=== PATIENT | female | born 1990 | race Caucasian/White ===

== ENCOUNTER 2021-06-24 11:38 | Day surgery (SDC) | payer MEDICAID, MEDICARE ==
[~2021-06-24] VITALS: Ht 149.9 cm; Wt 79.7 kg
[~2021-06-24 11:38] MED LIST: METHYLERGONOVINE 0.2 MG/ML IM ONE; OXYTOCIN 10 UNITS/ML, 1ML ONE; SILVER NITRATE STICK TP ONE; TYROSINE PO
[2021-06-24 11:57] VITALS: BP 109/78
[2021-06-24] MEDS ORDERED: CHLORHEXIDINE 15 ML UDC PO ONE (12:00)
[2021-06-24] MEDS ORDERED: LACTATED RINGERS 1,000 ML IV SCH (13:00)
[2021-06-24] MEDS ORDERED: MIDAZOLAM 1 MG/ML, 2ML ONE (13:08)
[2021-06-24] MEDS ORDERED: IBUP-1223 PO (13:09)
[2021-06-24] MEDS ORDERED: OXYC1TAB12 PO (13:09)
[2021-06-24] MEDS ORDERED: PROPOFOL 10 MG/ML, 20ML ONE (13:17)
[2021-06-24] MEDS ORDERED: DEXAMETHASONE 4 MG/ML, 1ML ONE (13:17)
[2021-06-24] MEDS ORDERED: KETOROLAC 30 MG/1 ML ONE (13:17)
[2021-06-24] MEDS ORDERED: ONDANSETRON 2MG/ML, 2ML ONE (13:17)
[2021-06-24] MEDS ORDERED: FENTANYL PF 250 MCG/5ML ONE (13:21)
[2021-06-24] MEDS ORDERED: FENTANYL PF 100 MCG/2ML ONE (14:29)
[2021-06-24] MEDS: FENTANYL PF 100 MCG/2ML IV PRN ×2 (14:30→14:46)
[2021-06-24] MEDS ORDERED: OXYcodone 5 MG/5 ML ORAL.SOL UDC ONE (14:43)
[2021-06-24] MEDS ORDERED: ONDANSETRON 2MG/ML, 2ML IVPush PRN (15:00)
[2021-06-24] MEDS ORDERED: METHOCARBAMOL 1,000 MG in DEXTROSE 5% 100 ML IV PRN (15:00)
[2021-06-24] MEDS ORDERED: OXYcodone 5 MG/5 ML ORAL.SOL UDC PO PRN (15:00)
[2021-06-24] MEDS ORDERED: EPHEDRINE 50 MG/ML, 1ML IVPush PRN (15:00)
[2021-06-24] MEDS ORDERED: ACETAMINOPHEN 325 MG TABLET PO PRN (15:00)
[2021-06-24] MEDS ORDERED: LORazepam 2 MG/ML, 1ML IVPush PRN (15:00)
[2021-06-24] MEDS ORDERED: hydrALAzine 20 MG/ML, 1ML IV PRN (15:00)
[2021-06-24] MEDS ORDERED: PROMETHAZINE 25 MG/ML, 1ML IVPush PRN (15:00)
[2021-06-24] MEDS ORDERED: LABETALOL 5MG/ML, 20ML IV PRN (15:00)
[2021-06-24] MEDS ORDERED: HYDROmorphone 1 MG/ML, 1ML INJ IVPush PRN (15:00)
== END 2021-06-24 16:10 | disposition home or self-care (01) ==
LOC: OUT 11:38
PROVIDERS: ATTEND Obstetrics & Gynecology
DX: N92.0 Excessive and frequent menstruation with regular cycle (principal); N94.6 Dysmenorrhea, unspecified; N85.00 Endometrial hyperplasia, unspecified; Z88.0 Allergy status to penicillin; Z98.51 Tubal ligation status; Z98.890 Other specified postprocedural states; Z72.89 Other problems related to lifestyle; Z79.899 Other long term (current) drug therapy; Z20.822 Contact with and (suspected) exposure to COVID-19
CPT/HCPCS: 58120; 58563; 81025; 88305; J1100; J1885; J2250; J2405; J2704; J3010; J7120; J2210; J2590